=== PATIENT | male | born 1985 | race Caucasian/White ===

== ENCOUNTER 2021-08-02 22:56 | Emergency (ER) | payer OTHER | END 2021-08-02 23:19 | disposition home or self-care (01) | LOC: BURERS 22:56 | DX: Z77.21 Contact with and (suspected) exposure to potentially hazardous body fluids (principal) | CPT/HCPCS: 99282 ==

== ENCOUNTER 2021-11-05 18:29 | Emergency (ER) | payer OTHER | END 2021-11-05 19:03 | disposition home or self-care (01) | LOC: BURERS 18:29 | DX: E78.5 Hyperlipidemia, unspecified (principal); Z87.891 Personal history of nicotine dependence; Z79.899 Other long term (current) drug therapy | CPT/HCPCS: 99283 ==